=== PATIENT | female | born 1965 | race Caucasian/White ===

== ENCOUNTER 2017-06-19 15:06 | Outpatient (CLI) | payer BC ==
--- NOTE | 2017-06-19 15:45 | RAD ---
PA AND LATERAL VIEWS OF CHEST: Date: 06/19/17 HISTORY: Chest pain. FINDINGS: There are no previous exams for comparison. The heart size is normal. The aorta is tortuous. The lungs are well expanded without confluent areas of consolidation, pneumothorax, or pleural effusions. No acute osseous abnormalities are seen. IMPRESSION: No radiographic evidence of acute cardiopulmonary process. POS: [facility]
== END 2017-06-19 15:07 | disposition home or self-care (01) ==
LOC: SCSRAD 15:06
PROVIDERS: ATTEND Family Medicine
DX: R07.9 Chest pain, unspecified (principal)
CPT/HCPCS: 71020

== ENCOUNTER 2019-10-16 08:54 | Outpatient (CLI) | payer OTHER ==
--- NOTE | 2019-10-16 10:33 | MRI ---
EXAM: Left knee MRI without contrast: HISTORY: Strain left knee, left knee pain following an injury at work COMPARISON: None FINDINGS: Multiplanar, multisequence MRI examination of the knees performed. No evidence for significant joint effusion. Fairly marked focal cartilage loss involving the medial compartment with some subchondral cystic montemayor ge and some sclerosis with possible associated small subchondral insufficiency type fracture involving the medial femoral condyle Medial meniscus: Very extensive complex flap tear medial meniscus particularly at the body and anteri or horn with displaced meniscal flap anteriorly. Lateral meniscus: Focal free edge blunting of the body of the lateral meniscus evidence for some surf todd tear versus focal fraying. Anterior cruciate ligament: Intact. Posterior cruciate ligament: Intact Collateral ligament complexes are intact. Quadriceps and patellar tendons are intact. IMPRESSION: Extensive complex tear of the medial meniscus including the body and anterior horn with displaced fla p anteriorly. Cartilage loss involving the medial compartment with some subchondral cystic changes as well as a pos sible associated small insufficiency type fracture involving the medial femoral condyle. Small free edge degenerative type tear or focal fraying of the body of the lateral meniscus.
--- NOTE | 2019-10-16 11:37 | MRI ---
MRI RIGHT KNEE PERFORMED WITHOUT CONTRAST ENHANCEMENT: Date: 10/16/2019 HISTORY: Medial and anterior knee pain after falling at work. FINDINGS: Anterior and posterior cruciate ligaments are intact. The lateral meniscus has a normal shape and appearance. There is a tear of the body of the medial meniscus. There is significant subluxation to the anterior horn of the meniscus associated with this somewhat complex tear. The root of the posterior horn is in tact. 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 Subchondral marrow ed guillermo changes are noted with small subchondral insufficiency fracture involving the medial femoral cond yle. There are also edema changes of the tibia. The medial and lateral collateral ligaments and iliotibial band regions are unremarkable. There is fissuring involving the apex of the patella with an obliquely oriented fissure extending thr ough greater than 50% of the thickness of the articular cartilage in this area. Medial and lateral pa tellar retinaculum, and quadriceps and patellar tendons appear unremarkable. There is some minimal pa tellar tendinosis. There are some edema changes anterior to the patella, and some soft tissue edema c hanges medial to the distal patellar tendon which may be related to the patient's fall. IMPRESSION: 1. Near full thickness area of fissuring within the patellar articular cartilage near the apex of th e patella. 2. Tear of the body of the medial meniscus. There is prominent subluxation of the anterior horn of t he meniscus associated with this tear, and there is marked medial compartment degenerative change and joint space narrowing with severe articular cartilage loss of both the tibia and femoral condyle. POS: [facility]
== END 2019-10-16 08:55 | disposition home or self-care (01) ==
LOC: BICMRI 08:54
PROVIDERS: ATTEND Family Medicine
DX: S80.01XD Contusion of right knee, subsequent encounter (principal); S86.912D Strain of unspecified muscle(s) and tendon(s) at lower leg level, left leg, subsequent encounter; S83.241A Other tear of medial meniscus, current injury, right knee, initial encounter; S83.232A Complex tear of medial meniscus, current injury, left knee, initial encounter; M17.11 Unilateral primary osteoarthritis, right knee

== ENCOUNTER 2020-10-19 09:41 | Outpatient (CLI) | payer BC ==
--- NOTE | 2020-10-19 10:04 | RAD ---
EXAM: 3 views of the left wrist HISTORY: Wrist pain after falling on ice COMPARISON: None FINDINGS: 3 views of the left wrist shows no evidence of acute fracture or dislocation. No soft tissu e swelling is seen. Moderate first CMC degenerative changes are seen. IMPRESSION: No evidence of acute osseous abnormality.
== END 2020-10-19 09:42 | disposition home or self-care (01) ==
LOC: BICRAD 09:41
PROVIDERS: ATTEND Family Medicine
DX: M25.532 Pain in left wrist (principal); S63.642A Sprain of metacarpophalangeal joint of left thumb, initial encounter; M79.645 Pain in left finger(s)

== ENCOUNTER 2021-01-17 09:35 | Outpatient (CLI) | payer BC ==
[2021-01-17 10:52] LABS: Bilirubin Neg (Negative); Blood, Urine Negative (Negative); Clarity Clear (Clear); Glucose, Urine (Dipstick) Normal (Negative); Ketone, Urine Negative (Negative); Leukocyte Negative (Negative); Nitrite Negative (Negative); Protein, Urine (Dipstick) Negative (Neg-Trace); Urobilinogen Normal mg/dL (Less than 2)
[2021-01-17 11:12] LABS: Bacteria/HPF 1+ HPF (None Seen); RBC/HPF 0-3 HPF (0-3); Squamous Epithelial 0-3 HPF (0-3); WBC/HPF 0-3 HPF (0-3)
[2021-01-17 17:51] LABS: SARS-CoV-2 PCR by NAA Not Detected (NotDetected)
== END 2021-01-17 09:36 | disposition home or self-care (01) ==
LOC: LABBT 09:35
PROVIDERS: ATTEND Orthopaedic Surgery Hand Surgery
DX: Z01.812 Encounter for preprocedural laboratory examination (principal); Z20.822 Contact with and (suspected) exposure to COVID-19; M18.12 Unilateral primary osteoarthritis of first carpometacarpal joint, left hand
CPT/HCPCS: 81001; 87635; U0003; U0005

== ENCOUNTER 2021-01-21 07:30 | Day surgery (SDC) | payer BC ==
[2021-01-19 12:47] VITALS: BMI 21.7
[2021-01-21] MEDS ORDERED: Midazolam HCl 2 mg/2 ml Vial ONE ×2 (08:24→09:06)
[2021-01-21] MEDS ORDERED: Fentanyl 100 MCG/2 ML VIAL ONE ×2 (08:24→09:06)
[2021-01-21] MEDS ORDERED: Bupivacaine PF 0.5% 30 ML VIAL ONE (09:07)
[2021-01-21] MEDS ORDERED: Sodium Chloride 0.9% 10 ML ONE (09:07)
[2021-01-21] MEDS ORDERED: Bacitracin Zinc Ointment 30 gm TUBE ONE (09:07)
[2021-01-21] MEDS ORDERED: traMADol HCl 50 MG TAB PO PRN ×2 (09:15)
[2021-01-21] MEDS ORDERED: Promethazine HCl 25 MG/ML VIAL IM PRN (09:15)
[2021-01-21] MEDS ORDERED: Zolpidem Tartrate 5 MG TAB PO PRN (09:15)
[2021-01-21] MEDS ORDERED: Ketorolac Tromethamine 30 MG/ML VIAL IVP PRN (09:15)
[2021-01-21] MEDS ORDERED: Ondansetron PF 4 MG/2 ML Vial IVP PRN (09:15)
[2021-01-21] MEDS ORDERED: Fentanyl 100 MCG/2 ML VIAL SLOW IVP PRN (09:15)
[2021-01-21] MEDS ORDERED: Ropivacaine 0.2% 550 ML 550 ML NERVE BLCK SCH (09:15)
[2021-01-21] MEDS ORDERED: HYDROcodone/Acetaminophen 10/325 mg Tablet PO PRN ×2 (09:15)
[2021-01-21] MEDS ORDERED: Dexamethasone 20 MG/5 ML VIAL ONE (09:26)
[2021-01-21] MEDS ORDERED: PROPOFOL 200 MG/20 ML VIAL ONE (09:26)
[2021-01-21] MEDS ORDERED: Ropivacaine 0.5% HCl/PF (150 MG/30 ML VIAL) ONE (09:26)
[2021-01-21] MEDS ORDERED: Ropivacaine 2% HCl/PF (20 MG/10 ML VIAL) ONE (09:26)
[2021-01-21] MEDS ORDERED: ePHEDrine Sulfate 50 MG/10 ML VIAL ONE (09:26)
[2021-01-21] MEDS ORDERED: Ondansetron PF 4 MG/2 ML Vial ONE (09:26)
[2021-01-21] MEDS ORDERED: Ketorolac Tromethamine 30 MG/ML VIAL ONE (09:26)
[2021-01-21] MEDS ORDERED: diphenhydrAMINE 50 MG/ML VIAL ONE (09:26)
== END 2021-01-21 15:15 | disposition home or self-care (01) ==
LOC: SDC 07:30
PROVIDERS: ATTEND Orthopaedic Surgery Hand Surgery
PROC: 3E0T3BZ Introduction of Anesthetic Agent into Peripheral Nerves and Plexi, Percutaneous Approach (ICD-10-PCS; principal; 2021-01-21)
PROC: 0LX60ZZ Transfer Left Lower Arm and Wrist Tendon, Open Approach (ICD-10-PCS; principal; 2021-01-21)
PROC: 0RUT07Z Supplement Left Carpometacarpal Joint with Autologous Tissue Substitute, Open Approach (ICD-10-PCS; principal; 2021-01-21)
DX: M18.12 Unilateral primary osteoarthritis of first carpometacarpal joint, left hand (principal); G89.18 Other acute postprocedural pain; G43.909 Migraine, unspecified, not intractable, without status migrainosus; Z79.1 Long term (current) use of non-steroidal anti-inflammatories (NSAID)
CPT/HCPCS: 76000; A4306; C1713; J0690; J1100; J1200; J1885; J2250; J2405; J2704; J2795; J3010; J3490; S0020

== ENCOUNTER 2022-01-10 08:12 | Outpatient (CLI) | payer BC | END 2022-01-10 08:13 | disposition home or self-care (01) | LOC: BICMAMMO 08:12 | PROVIDERS: ATTEND Family Medicine | DX: Z12.31 Encounter for screening mammogram for malignant neoplasm of breast (principal); Z91.89 Other specified personal risk factors, not elsewhere classified | CPT/HCPCS: 77063; 77067 ==

== ENCOUNTER 2022-07-04 11:15 | Emergency (ER) | payer BC | END 2022-07-04 11:54 | disposition home or self-care (01) | LOC: ERS 11:15 | DX: S01.511D Laceration without foreign body of lip, subsequent encounter (principal); X58.XXXD Exposure to other specified factors, subsequent encounter ==